=== PATIENT | female | born 1950 | race Caucasian/White ===

== ENCOUNTER 2021-09-06 18:36 | Emergency (ER) | payer MEDICARE, SELFPAY ==
--- NOTE | ~2021-09-06 | XR_ITS ---
EXAM: XR shoulder RT min 2V HISTORY: fall today/right shoulder pain COMPARISON: None available FINDINGS: Osteopenia. Implanted right chest port terminating in the cavoatrial junction. Cortical fl attening along the superolateral aspect of the right humeral head. Osseous fragments along the radiation therapy technician ior superior aspect of the glenoid, possibly representing humeral head fragments as this is not a [facility] location for osseous [place] lesions. Dislocation, probably anterior, of the humeral head from t he glenoid. Very limited scapular Y view. No other fracture or dislocation. Visualized lung parenchym a is clear. IMPRESSION: Presumed anterior right shoulder dislocation, with Hill-Sachs type fracture. Recommend a complete rig ht shoulder radiograph series, including AP internal and external rotation, Grashey, axillary, and sc apular Y views when clinically feasible. Reviewed, dictated and finalized at location K. IMPRESSION: Presumed anterior right shoulder dislocation, with Hill-Sachs type fracture. Re commend a complete right shoulder radiograph series, including AP internal and external rotation, Grashey, axillary, and scapular Y views when clinically feas ible.
[2021-09-06 19:00] VITALS: BP 116/75; PULSE 120; RESP 20; TEMP 37.1; O2SAT 95
--- NOTE | 2021-09-06 19:01 | ED.UPPEXIN ---
HPI - Extremity Injury (Upper) General Chief Complaint: Extremity Injury, Upper Stated Complaint: Rt Arm Pain due to Fall Time Seen by Provider: 09/06/21 18:55 Source: patient Mode of arrival: ambulatory Limitations: no limitations History of Present Illness HPI narrative: Lorie Boyd is a 70-year-old female with a PMH COPD who had a fall onto her right shoulder is in great pain when she arrived here; fell in parking lot at a soccer game and fell her right shoulder; went to x-ray from registration Related Data Home Medications Medication Instructions Recorded Confirmed albuterol sulfate See Rx Instructions .ROUTE .COMPLEX 09/06/21 09/06/21 sodium chloride See Rx Instructions .ROUTE .COMPLEX 09/06/21 09/06/21 Allergies Allergy/AdvReac Type Severity Reaction Status Date / Time azithromycin Allergy Unknown Other Verified 09/06/21 18:53 dextromethorphan Allergy Unknown Other Verified 09/06/21 18:53 [From Actinel] guaifenesin [From Actinel] Allergy Unknown Other Verified 09/06/21 18:53 levofloxacin [From Levaquin] Allergy Unknown Other Verified 09/06/21 18:53 pseudoephedrine Allergy Unknown Other Verified 09/06/21 18:53 [From Actinel] Review of Systems Review of Systems: CONSTITUTIONAL: Denies fever, chills, sweats. EYES: Denies visual changes, redness, discharge. ENT: Denies rhinorrhea, congestion, sore throat, otalgia. CARDIOVASCULAR: Denies chest pain, palpitations, edema. RESPIRATORY: Denies dyspnea, wheezing, cough GASTROINTESTINAL: Denies abdominal pain, nausea, vomiting, diarrhea. GENITOURINARY: Denies dysuria, hematuria, abnormal discharge SKIN: Denies rash or itching. NEUROLOGIC: Denies numbness, or focal weakness. PSYCHIATRIC: Denies anxiety or depression. Right shoulder pain PMFSH Past Medical History Medical History (Updated 09/06/21 @ 19:16 by Rosalba De León CNP) COPD (chronic obstructive pulmonary disease) Social History Social History Smoking status: Never smoker Alcohol intake: current Comments At time of signature, I agree with nursing past medical, surgical, social and family history. There is no relevant family history pertinent to the presenting complaint. Exam Narrative: GENERAL: This is a well-nourished, well-developed patient, in moderate distress. HEAD: normocephalic, atraumatic. EYES: Sclera clear/white. Vision is grossly intact. EARS: External ears normal, . Hearing grossly intact. NOSE: External nose normal without nasal discharge, nares without redness, no rhinorrhea. THROAT: Mucous membranes moist, NECK: Neck supple, non-tender CARDIOVASCULAR: Tachycardic rate and rhythm without murmurs, gallops, or rubs. RESPIRATORY: Clear to auscultation. Breath sounds equal bilaterally. No wheezes, rales, or rhonchi. GASTROINTESTINAL: Abdomen soft, SKIN: warm, intact with no suspicious lesions or rash, good texture and turgor. NEURO: awake, alert, and oriented to person, place and time. There were no obvious focal neurologic abnormalities. Steady gait EXTREMITIES: Holding right arm in a protective position it looks like she has dislocated shoulder BACK: Nontender without deformity Course Course Emergency Course: Patient here after fall in parking lot at soccer game onto her right shoulder X-ray looks like she has dislocated shoulder patient she is in great pain but they do not want a good [place] have decided with a want to take her for placement Patient placed in sling and taken by family to [facility] for treatment of shoulder they do not want to go to [place] under any circumstances Level of Care: Express Care Visit MDM - Extremity Injury (Upper) Differential Diagnosis Differential diagnosis: Likely sprain and strain of wrist, dislocation of shoulder, fracture of humerus and fracture of clavicle Critical Care Time Critical Care Time Critical Care Time: No Discharge Plan Discharge Clinical Impression:
[2021-09-06] MEDS: ACETAMINOPHEN 500 MG TABLET 650 MG PO (19:03)
== END 2021-09-06 19:15 | disposition left against medical advice (07) ==
PROVIDERS: Emergency Provider Nurse Practitioner; PCP Internal Medicine
DX: S43.004A Unspecified dislocation of right shoulder joint, initial encounter (principal); W19.XXXA Unspecified fall, initial encounter; J44.9 Chronic obstructive pulmonary disease, unspecified
CPT/HCPCS: 73030; 99203; A4565; A9270; G0463